=== PATIENT | male | born 1945 | race Caucasian/White ===

== ENCOUNTER 2016-12-23 14:26 | Emergency (ER) | payer SELFPAY ==
[2016-12-23 14:40] VITALS: BP 133/75
--- NOTE | 2016-12-23 15:11 | UC ---
Truncal Trauma HPI - HPI Summary HPI Summary: TWO HOURS [employer], WAS HIT IN ANTERIOR CHEST BY TRACTOR TRAILER GATE THAT WAS SUPPORTING A 3000 POUND ROCK. PAIN RADIATES FROM FRONT OF CHEST AT SITE OF INJURY TO BACK. PAIN IN (RUQ) ABDOMEN. 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 Onset/Duration: Sudden Onset, Lasting Hours Onset Of Pain: Post Accident Severity Initially: Moderate Severity Currently: Moderate Mechanism Of Injury: Blunt Trauma Aggravating Factor(s): Movement, Deep Breathing, Cough Alleviating factor(s): Shallow Breathing Associated Signs And Symptoms: Positive: Chest Pain, Abdominal Pain - Allergies/Home Medications Allergies/Adverse Reactions: Allergies Allergy/AdvReac Type Severity Reaction Status Date / Time Hydrocodone [From Vicodin] Allergy Intermediate Hypotension, Verified 12/23/16 14:43 Sweating Penicillins Allergy Mild Hives Verified 12/23/16 14:43 Morphine Allergy Hypotension, Verified 12/23/16 14:56 Sweating Tree Nuts Allergy Anaphylatic Verified 12/23/16 14:43 Shock Home Medications: Home Medications Naproxen Sodium [Naproxen Sodium 220 mg] 2 tab PO BID PRN 12/23/16 [History Confirmed 12/23/16] PMH/Surg Hx/FS Hx/Imm Hx Previously Healthy: Yes - Surgical History Surgical History: Yes Surgery Procedure, Year, and Place: [facility], , [facility] - Family History Known Family History: Positive: Hypertension - Social History Occupation: Employed Full-time Lives: With Family Alcohol Use: Rare Substance Use Type: None Smoking Status (MU): Never Smoked Tobacco - Immunization History Most Recent Influenza Vaccination: Not UTD Review of Systems Constitutional: Negative Skin: Negative Eyes: Negative ENT: Negative Respiratory: Shortness Of Breath Cardiovascular: Chest Pain Gastrointestinal: Abdominal Pain Genitourinary: Negative Motor: Negative Neurovascular: Negative Musculoskeletal: Negative Neurological: Negative Psychological: Negative Is Patient Immunocompromised?: No All Other Systems Reviewed And Are Negative: Yes Physical Exam Triage Information Reviewed: Yes Appearance: Well-Nourished, Pain Distress Vital Signs: Initial Vital Signs Temp 98.2 F 12/23/16 14:30 Pulse 58 12/23/16 14:30 Resp 20 12/23/16 14:30 BP 133/75 12/23/16 14:30 Pulse Ox 98 12/23/16 14:30 Vital Signs Reviewed: Yes Eye Exam: Normal ENT Exam: Normal ENT: Positive: Normal ENT inspection, TMs normal Dental Exam: Normal Neck exam: Normal Neck: Positive: Supple, Nontender, No Lymphadenopathy Respiratory: Positive: Chest non-tender, Lungs clear, Normal breath sounds, No respiratory distress. Negative: No accessory muscle use, Respiratory distress, Decreased breath sounds Cardiovascular Exam: Normal Cardiovascular: Positive: RRR, No Murmur, Pulses Normal Abdomen Description: Positive: No Organomegaly, Soft. Negative: Nontender - LUQ PAIN, Hepatomegaly, McBurney's Point Tenderness, Peritoneal Signs Bowel Sounds: Positive: Present Musculoskeletal Exam: Normal Musculoskeletal: Positive: Strength Intact, ROM Intact Neurological Exam: Normal Psychological Exam: Normal Psychological: Positive: Normal Response To Family Skin Exam: Normal Truncal Trauma Course/Dx - Differential Dx/Diagnosis Differential Diagnosis/HQI/PQRI: Abdominal Wall Contusion, Chest Wall Contusion , Spleen Trauma, Pulmonary Contusion, Rib Fracture Provider Diagnoses: CHEST TRAUMA; CHEST PAIN; LUQ ABDOMINAL PAIN - Physician Notification/Consults Discussed Patient Care With: Elidia Miller Time Discussed With Above Provider: 14:50 Instructed by Provider To: MD Will See In ED Discharge - Discharge Plan Condition: Stable Disposition: [facility]
== END 2016-12-23 15:16 | disposition short-term general hospital (02) ==
LOC: UCEAST 14:26
DX: S29.9XXA Unspecified injury of thorax, initial encounter (principal); Z88.0 Allergy status to penicillin; W22.8XXA Striking against or struck by other objects, initial encounter; Y92.9 Unspecified place or not applicable; R07.9 Chest pain, unspecified; R10.12 Left upper quadrant pain
CPT/HCPCS: 81003; 93005; 99213; G0463

== ENCOUNTER 2016-12-23 15:36 | Emergency (ER) | payer SELFPAY ==
--- NOTE | 2016-12-23 16:02 | ED ---
Adult Trauma - HPI Summary HPI Summary: 71 male presents to ED from with complaints of epigastric/mid sternal pain after being hit by a tractor trailer tailgate around 12pm today. Patient states he was opening it when a several thousand pound rock was against it forcing it open, swinging and hitting patient in the center of his trunk. Patient did not fall done and no LOC. Did get pushed back from tailgate. Denies any other pain or symptoms other than soreness of mid sternal/epigastric area, especially with sitting and on palpation. Worse with deep breaths. Denies chest pain or trouble breathing. No extremity or head pain/injury. Denies nausea/vomiting. No other complaints. No PMHx. Has not taken any medications. No anticoagulants. - History of Current Complaint Chief Complaint: EDTraumaMultiple Stated Complaint: CHEST INJURY Time Seen by Provider: 12/23/16 15:57 Hx Obtained From: Patient Mechanism of Injury: Direct Blow Ambulatory at the Scene: Yes Loss of Consciousness: no loss of consciousness Impact: Frontal - of body Force: High Onset of Pain: Hours Onset Severity: Mild Current Severity: Mild Pain Intensity: 3 Pain Scale Used: 0-10 Numeric Location: Chest, Abdomen/Pelvis Character: Aching Aggravating Factor(s): Movement, Deep Breaths Alleviating Factor(s): Rest Associated Signs & Symptoms: Positive: Negative - Allergy/Home Medications Allergies/Adverse Reactions: Allergies Allergy/AdvReac Type Severity Reaction Status Date / Time Hydrocodone [From Vicodin] Allergy Intermediate Hypotension, Verified 12/23/16 14:43 Sweating Penicillins Allergy Mild Hives Verified 12/23/16 14:43 Morphine Allergy Hypotension, Verified 12/23/16 14:56 Sweating Tree Nuts Allergy Anaphylatic Verified 12/23/16 14:43 Shock PMH/Surg Hx/FS Hx/Imm Hx Endocrine/Hematology History: Denies: Hx Anticoagulant Therapy, Hx Diabetes Cardiovascular History: Denies: Hx Hypertension Respiratory History: Reports: Hx Asthma GI History: Reports: Other GI Disorders - hernia - Surgical History Surgery Procedure, Year, and Place: U[facility]rhaphy, , [facility] - Immunization History Immunizations Up to Date: Yes Infectious Disease History: No Infectious Disease History: Reports: Hx of Known/Suspected MRSA - under R arm 2011 Denies: History Other Infectious Disease, Traveled Outside the [place] in Last 30 Days - Family History Known Family History: Positive: Hypertension - Social History Alcohol Use: Rare Alcohol Amount: "a beer once in a while" Substance Use Type: Reports: None Smoking Status (MU): Never Smoked Tobacco Review of Systems Constitutional: Negative Positive: Other - chest wall/rib and sternum pain Respiratory: Negative Gastrointestinal: Negative Musculoskeletal: Negative Skin: Negative Neurological: Negative All Other Systems Reviewed And Are Negative: Yes Physical Exam Triage Information Reviewed: Yes Vital Signs On Initial Exam: Initial Vitals Temp Pulse Resp BP Pulse Ox 98.4 F 51 16 130/79 97 12/23/16 15:46 12/23/16 15:46 12/23/16 15:46 12/23/16 15:46 12/23/16 15:46 Vital Signs Reviewed: Yes Appearance: Positive: Well-Appearing, No Pain Distress, Well-Nourished Skin: Positive: Warm, Skin Color Reflects Adequate Perfusion, Dry, Cold, Other - no crepitus, step off or obvious deformity or edema. Negative: Numb, Cyanosis @, Pale, Mass @, Erythema @ Head/Face: Positive: Normal Head/Face Inspection ENT: Positive: Normal ENT inspection, Hearing grossly normal, Pharynx normal, TMs normal. Negative: Nasal congestion, Tonsillar swelling Neck: Positive: Supple, Nontender, No Lymphadenopathy Respiratory/Lung Sounds: Positive: Clear to Auscultation, Breath Sounds Present. Negative: Decreased Breath Sounds, Rales, Rhonchi, Wheezes Cardiovascular: Positive: Normal, RRR, Pulses are Symmetrical in both Upper and Lower Extremities, Other - tender on palpation of lower sternum and rib cage. Negative: Murmur, Rub Abdomen Description: Positive: No Organomegaly, Soft, Hernia @ - mid abdominal hernia noted with sitting- chronic, Other: - tender on palpation in epigastric area, no sign of ecchymosis, edema or signs of trauma appreciated. Negative: CVA Tenderness (R), CVA Tenderness (L), Distended, Guarding, McBurney's Point Tenderness, Peritoneal Signs Bowel Sounds: Positive: Present Musculoskeletal: Positive: Normal, Strength/ROM Intact, Pain @ - palaption of lower rib cage and sternum as noted above Neurological: Positive: Normal, Sensory/Motor Intact, Alert, Oriented to Person Place, Time, CN Intact II-III, Reflexes Intact, NV Bundle Intact Distally, Normal Gait - [place] Coma Scale Best Eye Response: 4 - Spontaneous Best Motor Response: 6 - Obeys Commands Best Verbal Response: 5 - Oriented Coma Scale Total: 15 Diagnostics - Vital Signs Vital Signs Temp Pulse Resp BP Pulse Ox 12/23/16 15:46 98.4 F 51 16 130/79 97 - Laboratory Result Diagrams: 12/23/16 15:10 12/23/16 15:10 Lab Statement: Any lab studies that have been ordered have been reviewed, and results considered in the medical decision making process. - CT chest/abd/pelvis CT Interpretation: No Acute Changes - No pneumothorax is noted. No chest injury is noted. No solid organ injury is noted in the abdomen and pelvis. Incidental note is a retrocaval lymph node measuring 12 mm of uncertain clinical significance. CT Interpretation Completed By: Radiologist Adult Trauma Course/Dx - Course Course Of Treatment: sent over from . normal vitals. labs obtained and unremarkable. EKG negative. no sign of obvious trauma. alert and oriented. CT abd/chest/pelvis obtained and unremarkable. No spinal injury or pain. No neck pain. No concern for cardiorespiratory or other etiologies/injuries at this time. Follow up with PCP. Aware of worsening signs and symptoms and to return if occur. Patient questions answered and understands/agrees. Ibuprofen and rest. Heat/ice. - Diagnoses Differential Diagnosis/HQI/PQRI: Positive: Abrasion(s), Contusion(s), Sprain Provider Diagnoses: Epigastric pain, Contusion of sternum, Rib contusion Discharge - Discharge Plan Condition: Stable Disposition: HOME Patient Education Materials: Contusion in Adults (ED), Rib Contusion (ED) Referrals: Loco Chan MD [Primary Care Provider] - Additional Instructions: Ibuprofen for pain and inflammation. Rest. Heat/ice. Any new or worsening symptoms please return to ED promptly as discussed. Follow up PCP.
[2016-12-23 16:15] LABS: Hematocrit 45 % (42-52); Hemoglobin 15.5 g/dl (14.0-18.0); Mean Corpuscular HGB Conc 35 g/dl (31-36); Mean Corpuscular Hemoglobin 31 pg (27-31); Mean Corpuscular Volume 89 fL (80-94); Mean Platelet Volume 9 um3 (7.4-10.4); Red Blood Count 5.03 10^6/ul (4.0-5.4); Red Cell Distribution Width 14 % (10.5-15); White Blood Count 7.1 10^3/ul (3.5-10.8)
[2016-12-23 16:36] LABS: Albumin 4.2 g/dL (3.2-5.2); Calcium 9.3 mg/dL (8.6-10.3); EGFR Non-African American 79.3 (>60); Globulin 2.8 g/dL (2-4); Potassium 4.1 mmol/L (3.5-5.0); Total Bilirubin 1.6 mg/dL (0.2-1.0)
[2016-12-23] MEDS ORDERED: Iohexol 300* (CONTRAST) 10 ML SDV IV ONE (16:38)
[2016-12-23 17:01] VITALS: BP 119/68
--- NOTE | 2016-12-23 17:24 | RAD ---
Indication: Chest and abdominal injury. Contrast: Administered 148.2 ml of OMNIPAQUE 300 mg/ml CT of the chest, abdomen and pelvis was performed after IV contrast demonstration. Coronal and sagittal reconstructed images were obtained. No prior study is available for comparison. The inferior thyroid lobes are unremarkable. No mediastinal or hilar adenopathy is noted. The heart demonstrates no pericardial effusion. The trachea and major bronchi appear patent. The lung clemente demonstrate bibasilar atelectasis. No pleural fluid is identified. No pneumothorax is noted. The sternum demonstrates no definite evidence of fracture. No rib fracture is noted. The visualized thoracic spine is otherwise unremarkable. CT of the abdomen and pelvis demonstrates liver to be normal in size. No focal lesions or intrahepatic ductal dilatation is noted. The gallbladder demonstrates no calcified gallstones. No pericholecystic fluid or wall thickening is identified. The pancreas demonstrates no mass or pancreatic duct dilatation. The common duct is not dilated. The spleen is normal in size without evidence of focal lesions. No adrenal masses are noted. The kidneys demonstrate symmetric nephrograms without focal lesions. Atherosclerotic aorta is noted. There is a retrocaval lymph node measuring up to 12 mm. No dilated loops of bowel are noted. CT of the pelvis demonstrates no retroperitoneal or pelvic lymphadenopathy. Aorta and inferior vena cava are unremarkable. The colon is filled with stool. The urinary bladder is unremarkable. The prostate is unremarkable. Degenerative changes of both hips are noted. No fracture of the pelvis is noted. The visualized lumbar spine is unremarkable. IMPRESSION: No pneumothorax is noted. Chest injury is noted. No solid organ injury is noted in the abdomen and pelvis. Incidental note is a retrocaval lymph node measuring 12 mm of uncertain clinical significance.
== END 2016-12-23 17:55 | disposition home or self-care (01) ==
LOC: ED 15:36
DX: S20.219A Contusion of unspecified front wall of thorax, initial encounter (principal); W22.8XXA Striking against or struck by other objects, initial encounter; Y93.89 Activity, other specified; Y92.9 Unspecified place or not applicable; R10.13 Epigastric pain; J45.909 Unspecified asthma, uncomplicated; Z88.5 Allergy status to narcotic agent; Z88.0 Allergy status to penicillin
CPT/HCPCS: 36415; 71260; 74177; 80053; 83605; 85025; 85610; 86850; 86900; 86901; 93005; 99282; Q9967

== ENCOUNTER 2017-09-10 07:00 | Emergency (ER) | payer BC, OTHER ==
[2017-09-10 07:19] VITALS: BP 121/66
--- NOTE | 2017-09-10 07:33 | UC ---
Ear Complaint HPI - HPI Summary HPI Summary: The patient is a 72-year-old male that reports that he has had decreased hearing in his left ear for the past 4 days. He states it feels plugged. He has had to have his ear flushed on numerous occasions in the past for short room and impaction. He denies any history of ear surgery. He has had to see ENT in the past. He states that he is hard of hearing. He has chronic nasal congestion and sinus pressure. - History of Current Complaint Chief Complaint: UCEar Stated Complaint: LEFT EAR Time Seen by Provider: 09/10/17 07:22 Hx Obtained From: Patient Onset/Duration: Gradual Onset, Lasting Days Severity Initially: Mild Pain Intensity: 0 Pain Scale Used: 0-10 Numeric Associated Signs/Symptoms: Positive: Hearing Loss Related History: Seasonal Allergies - Allergies/Home Medications Allergies/Adverse Reactions: Allergies Allergy/AdvReac Type Severity Reaction Status Date / Time hydrocodone Allergy See Comment Verified 09/10/17 07:16 morphine Allergy See Comment Verified 09/10/17 07:16 Penicillins Allergy Hives Verified 09/10/17 07:16 Tree Nuts Allergy Anaphylatic Verified 09/10/17 07:16 Shock Home Medications: Home Medications Pain Medication 1 tab PO BID PRN 09/10/17 [History Confirmed 09/10/17] PMH/Surg Hx/FS Hx/Imm Hx Previously Healthy: Yes Other History Of: Negative For: Anticoagulant Therapy - Surgical History Surgical History: Yes Surgery Procedure, Year, and Place: U[facility]ilical [facility]iorrhaphy, , [facility] - Family History Known Family History: Positive: Hypertension - Social History Alcohol Use: Rare Alcohol Amount: "a beer once in a while" Substance Use Type: None Smoking Status (MU): Never Smoked Tobacco - Immunization History Most Recent Influenza Vaccination: Not UTD Review of Systems Constitutional: Negative Skin: Negative Eyes: Negative ENT: Other - hearing loss left ear Respiratory: Negative Cardiovascular: Negative Gastrointestinal: Negative Genitourinary: Negative Motor: Negative Neurovascular: Negative Musculoskeletal: Negative Neurological: Negative Psychological: Negative Is Patient Immunocompromised?: No All Other Systems Reviewed And Are Negative: Yes Physical Exam Triage Information Reviewed: Yes Appearance: Well-Appearing, No Pain Distress, Well-Nourished Vital Signs: Initial Vital Signs Temp 97.6 F 09/10/17 07:13 Pulse 52 09/10/17 07:13 Resp 16 09/10/17 07:13 BP 121/66 09/10/17 07:13 Pulse Ox 99 09/10/17 07:13 Vital Signs Reviewed: Yes Eyes: Positive: Conjunctiva Clear ENT: Positive: Nasal congestion, TMs normal - some scant cerumen in right ear, Uvula midline. Negative: Hearing grossly normal, Nasal drainage, Trismus, Muffled voice, Hoarse voice, Sinus tenderness Neck: Positive: Supple, Nontender, No Lymphadenopathy Respiratory: Positive: Lungs clear, Normal breath sounds, No respiratory distress, No accessory muscle use Cardiovascular: Positive: RRR, No Murmur Musculoskeletal: Positive: ROM Intact, No Edema Neurological: Positive: Alert Psychological Exam: Normal Skin Exam: Normal Ear Complaint Course/Dx - Differential Dx/Diagnosis Provider Diagnoses: hearing loss L ear. possible ZOË Discharge - Sign-Out/Discharge Documenting (check all that apply): Discharge/Admit/Transfer - Discharge Plan Condition: Stable Disposition: HOME Prescriptions: Fluticasone NASAL SPRAY 50MCG* [Flonase NASAL SPRAY 50MCG*] 2 spray BOTH NARES BID #1 btl Patient Education Materials: Hearing Loss (ED), Serous Otitis Media (ED) Referrals: Loco Chna MD [Primary Care Provider] - Additional Instructions: I am unsure of the cause of your hearing loss in the left ear It may be due to serous otitis media I suggest you see your ENT doctor - Billing Disposition and Condition Condition: STABLE Disposition: Home
== END 2017-09-10 07:34 | disposition home or self-care (01) ==
LOC: UCCORT 07:00
DX: H91.92 Unspecified hearing loss, left ear (principal); Z88.0 Allergy status to penicillin; Z88.5 Allergy status to narcotic agent
CPT/HCPCS: 99212; G0463

== ENCOUNTER 2018-06-29 13:36 | Emergency (ER) | payer MEDICARE ==
[2018-06-29 14:01] VITALS: BP 126/75
--- NOTE | 2018-06-29 14:14 | UC ---
Ear Complaint HPI - HPI Summary HPI Summary: Pt presents with c/o bilateral ear "issues" X several months. 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 He has seen his PCP multiple times for this same c/o and is unsatisfied with answer that has been provided as reason for hearing issues. - History of Current Complaint Chief Complaint: UCEar Stated Complaint: BILATERAL EAR COMPLAINT Time Seen by Provider: 06/29/18 13:37 Hx Obtained From: Patient Onset/Duration: Gradual Onset, Lasting Weeks, Still Present Severity Initially: Mild Severity Currently: Mild Pain Intensity: 0 Associated Signs/Symptoms: Positive: Hearing Loss - Allergies/Home Medications Allergies/Adverse Reactions: Allergies Allergy/AdvReac Type Severity Reaction Status Date / Time hydrocodone Allergy See Comment Verified 06/29/18 13:52 morphine Allergy See Comment Verified 06/29/18 13:52 Penicillins Allergy Hives Verified 06/29/18 13:52 Tree Nuts Allergy Anaphylatic Verified 06/29/18 13:52 Shock Home Medications: Home Medications Aspirin [Aspir-Low] 81 mg PO DAILY 06/29/18 [History Confirmed 06/29/18] Clopidogrel TAB* [Plavix TAB*] 75 mg PO DAILY 06/29/18 [History Confirmed ] FLUoxetine CAP* [PROzac CAP*] 40 mg PO DAILY 06/29/18 [History Confirmed ] Oxybutynin TAB* [Ditropan TAB*] 5 mg PO BID 06/29/18 [History Confirmed 06/29/18 ] Rosuvastatin Calcium [Crestor] 20 mg PO DAILY 06/29/18 [History Confirmed ] PMH/Surg Hx/FS Hx/Imm Hx Previously Healthy: Yes Cardiovascular History: Cardiac Disease Other History Of: Negative For: Anticoagulant Therapy - Surgical History Surgical History: Yes Surgery Procedure, Year, and Place: U[facility]rhap[facility], , [facility] - Family History Known Family History: Positive: Hypertension - Social History Occupation: Retired Lives: With Family Alcohol Use: Rare Alcohol Amount: "a beer once in a while" Substance Use Type: None Smoking Status (MU): Never Smoked Tobacco Have You Smoked in the Last Year: No - Immunization History Most Recent Influenza Vaccination: Not UTD Review of Systems All Other Systems Reviewed And Are Negative: Yes Constitutional: Positive: Negative Skin: Positive: Negative Eyes: Positive: Negative ENT: Positive: Other - hearing loss and poppling noise in ears Respiratory: Positive: Negative Cardiovascular: Positive: Negative Gastrointestinal: Positive: Negative Genitourinary: Positive: Negative Motor: Positive: Negative Neurovascular: Positive: Negative Musculoskeletal: Positive: Negative Neurological: Positive: Negative, Headache Is Patient Immunocompromised?: No Physical Exam Triage Information Reviewed: Yes Appearance: Well-Appearing Vital Signs: Initial Vital Signs Temp 98.4 F 06/29/18 13:55 Pulse 56 06/29/18 13:55 Resp 18 06/29/18 13:55 BP 126/75 06/29/18 13:55 Pulse Ox 98 06/29/18 13:55 Vital Signs Reviewed: Yes Eye Exam: Normal ENT Exam: Normal ENT: Positive: Normal ENT inspection, Hearing grossly normal Dental Exam: Normal Neck exam: Normal Respiratory: Positive: No respiratory distress Musculoskeletal Exam: Normal Neurological Exam: Normal Psychological Exam: Normal Skin Exam: Normal Ear Complaint Course/Dx - Differential Dx/Diagnosis Differential Diagnosis/HQI/PQRI: Other - hearing loss Provider Diagnosis: Hearing loss Discharge - Sign-Out/Discharge Documenting (check all that apply): Patient Departure All imaging exams completed and their final reports reviewed: No Studies - Discharge Plan Condition: Stable Disposition: HOME Patient Education Materials: Hearing Loss (ED) Referrals: [facility] [place] [facility] [Outside] Fran Jenkins MD [Primary Care Provider] - As Soon As Possible Additional Instructions: [facility] [address] [place] [address], [phone] Hours of Operation Monday: 8:00 A.M. 4:30 P.M. - Billing Disposition and Condition Condition: STABLE Disposition: Home
== END 2018-06-29 14:40 | disposition home or self-care (01) ==
LOC: UCCORT 13:36
DX: H91.93 Unspecified hearing loss, bilateral (principal); Z88.8 Allergy status to other drugs, medicaments and biological substances; Z88.5 Allergy status to narcotic agent; Z88.0 Allergy status to penicillin; Z91.018 Allergy to other foods; Z79.82 Long term (current) use of aspirin
CPT/HCPCS: 99211; G0463

== ENCOUNTER 2019-03-08 10:50 | Emergency (ER) | payer MEDICARE ==
--- OUTSIDE RECORDS SUMMARY | 2019-03-08 11:11 | XMS REPORT | Summary of Care ---
:1945 Author Organization [facility] Address [address] [place] [address] Care Team Providers Name Role Phone Fran Jenkins MD Primary Care Provider Reason for Visit Reason Comments Hypertension Encounter Details Date Type Department Care Team Description 02/05/2019 Office Visit [place] Josiane Eddy, Cerebrovascular accident (CVA) due to stenosis of right middle cerebral artery (Primary Dx); Cardiology at Essential hypertension [place] [address] [place] [address] [facility] [address] [place] [address] 5th Floor, [phone] [place] [phone] Allergies Active Allergy Reactions Severity Noted Date Comments Morphine And Related Nausea And Vomiting 05/11/2018 Penicillins 02/04/2018 documented as of this encounter (statuses as of 02/05/2019) Medications Medication Sig Dispensed Refills Start Date End Date Status clopidogrel (PLAVIX) Take 1 tablet by 30 tablet 1 02/14/2018 02/13/2019 Active 75 MG tablet mouth daily Additional information Patient not taking. Reported on 02/05/2019 1:05 PM fluoxetine (PROZAC) 20 Take 1 capsule by 30 capsule 1 02/14/20182018 Active MG capsule mouth daily Additional information Patient taking differently: 40 mg Oral Daily Standard, Reported on 2018 1:16 PM rosuvastatin (CRESTOR) 20 Take 1 tablet by 30 tablet 1 02/14/20182018 Active MG tablet mouth daily acetaminophen (TYLENOL) Take 1,000 mg by 0 Active 500 MG tablet mouth every 6 (six) hours as needed for Pain oxybutynin (DITROPAN) 5 Take 5 mg by mouth 0 Active MG tablet Two Times Daily buPROPion (WELLBUTRIN SR) Take 150 mg by 0 Active 150 MG 12 hr tablet mouth Two Times Daily aspirin 81 MG tablet Take 81 mg by 0 Active mouth daily lisinopril Take 1 tablet by 30 tablet 11 01/01/2019 12/31/2019 Active (PRINIVIL,ZESTRIL) 5 MG mouth daily tabletIndications: Essential hypertension documented as of this encounter (statuses as of 02/05/2019) Active Problems Problem Noted Date Essential hypertension 01/02/2019 Last Assessment & Plan: Blood pressure is better-controlled. He will follow up with his PCP in this regard from now on. 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 There is no evidence of any cardiac condition that can potentially preclude him from driving. 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 I will defer to the neurologist to comment in this regard about his neurological status pertaining to his ability to drive. Benign positional vertigo 05/11/2018 Dyslipidemia 05/11/2018 Overview: Overview: LDL 167 in Nov 2009, failed Lipitor in prior year Last Assessment & Plan: On high dose rosuvastatin. Obesity 05/11/2018 Seasonal allergies 05/11/2018 Overview: Overview: environmental Impaired mobility and ADLs 02/07/2018 Cerebrovascular accident (CVA) due to stenosis of right middle cerebral 2017 artery Last Assessment & Plan: CHIO did not show any evidence of interatrial shunt/PFO. No further evaluation from the point of view of PFO closure is required. Acute right MCA stroke 02/04/2018 Last Assessment & Plan: He was supposed to get his CHIO done to assess for presence of PFO. He has a positive TCD study. His ROPE score is 3-4 ( hypertension present or not) with low likelihood of stroke being due to PFO. Given his age also, he would not be a frontline candidate for PFO closure. To further elucidate the matter a CHIO is required. Chronic pain of right hip 08/25/2017 Primary osteoarthritis of right hip 08/22/2017 documented as of this encounter (statuses as of 02/05/2019) Immunizations Name Administration Dates Next Due Influenza Quad IM Pres Free (0.5 mL dose) 02/07/2018 () documented as of this encounter Social History Tobacco Use Types Packs/Day Years Used Date Never Smoker 0 Smokeless Tobacco: Never Used Alcohol Use Drinks/Week oz/Week Comments No 2 Cans of beer 2.0 Alcohol Habits Answer Date Recorded How often do you have a drink containing alcohol? Never 05/11/2018 How many drinks containing alcohol do you have on a typical Not asked day when you are drinking? How often do you have six or more drinks on one occasion? Not asked Sex Assigned at Date Recorded Not on file Job Start Date Occupation Industry Not on file Not on file Not on file Travel History Travel Start Travel End No recent travel history available. documented as of this encounter Last Filed Vital Signs Vital Sign Reading Time Taken Comments Blood Pressure 141/80 02/05/2019 1:01 PM EST Pulse 64 02/05/2019 1:01 PM EST Temperature - - Respiratory Rate - - Oxygen Saturation 95% 02/05/2019 1:01 PM EST Inhaled Oxygen Concentration - - Weight 103.1 kg (227 lb 3.2 oz) 02/05/2019 1:01 PM EST Height - - Body Mass Index 36.08 05/11/2018 10:57 AM EST documented in this encounter Progress Notes Josiane Eddy MD - 02/05/2019 1:30 PM EST Dear Fran Jenkins MD I had the pleasure of seeing our mutual patient Migel Torre in the clinic today. Please find attached the clinic visit note for your perusal. Migel Torre [id number] 73 y.o. male Reason for visit: HPI Migel Torre is a pleasant 73 y.o. male who presented to our clinic for evaluation of PFO closure. He suffered a right MCA stroke in 02/2018. He had a CHIO on 01/21/2019. He is here for a follow up. Patient denies any chest pain with exertion. No dyspnea on exertion. No orthopnea or PND. He denied palpitations, dizziness or syncope. No ankle edema. No symptoms suggestive of claudication. He has some residual facial droop since his stroke. No weakness in arms or legs. Cherie Carreon RN 02/05/2019 1:06 PM Sign at exiting of workspace Denies Chest pain, SOB, palpitations, and swelling in ankles/feet. Review of Systems Constitutional: Positive for malaise/fatigue. HENT: Positive for hearing loss. Eyes: Negative. Respiratory: Negative for shortness of breath. Cardiovascular: Negative for chest pain and palpitations. Gastrointestinal: Negative. Genitourinary: Negative. Musculoskeletal: Negative. Neurological: Positive for sensory change and focal weakness. 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 Social Needs Financial resource strain: Not on file Food insecurity: Worry: Not on file Inability: Not on file Transportation needs: Medical: Not on file Non-medical: Not on file Tobacco Use Smoking status: Never Smoker Smokeless tobacco: Never Used Substance and Sexual Activity Alcohol use: No Alcohol/week: 2.0 standard drinks Types: 2 Cans of beer per week Frequency: Never Drug use: No Sexual activity: Never Lifestyle Physical activity: Days per week: Not on file Minutes per session: Not on file Stress: Not on file Relationships Social connections: Talks on phone: Not on file Gets together: Not on file Attends gnosticism service: Not on file Active member of club or organization: Not on file Attends meetings of clubs or organizations: Not on file Relationship status: Not on file Intimate partner violence: Fear of current or ex partner: Not on file Emotionally abused: Not on file Physically abused: Not on file Forced sexual activity: Not on file Other Topics Concern Not on file Social History Narrative Not on file Current Outpatient Medications on File Prior to Visit Medication Sig Dispense Refill acetaminophen (TYLENOL) 500 MG tablet Take 1,000 mg by mouth every 6 (six ) hours as needed for Pain aspirin 81 MG tablet Take 81 mg by mouth daily buPROPion (WELLBUTRIN SR) 150 MG 12 hr tablet Take 150 mg by mouth Two Times Daily fluoxetine (PROZAC) 20 MG capsule Take 1 capsule by mouth daily (Patient taking differently: Take 40 mg by mouth daily ) 30 capsule 1 lisinopril (PRINIVIL,ZESTRIL) 5 MG tablet Take 1 tablet by mouth daily 30 tablet 11 oxybutynin (DITROPAN) 5 MG tablet Take 5 mg by mouth Two Times Daily rosuvastatin (CRESTOR) 20 MG tablet Take 1 tablet by mouth daily 30 tablet 1 clopidogrel (PLAVIX) 75 MG tablet Take 1 tablet by mouth daily (Patient not taking: Reported on 02/05/2019) 30 tablet 1 No current facility-administered medications on file prior to visit. Allergies Allergen Reactions Morphine And Related Nausea And Vomiting Penicillins Physical Examination: Vitals: 02/05/19 1301 BP: 141/80 Pulse: 64 SpO2: 95% Physical Exam Constitutional: He is oriented to person, place, and time. He appears well- developed and well-nourished. HENT: Head: Normocephalic and atraumatic. Eyes: Conjunctivae and EOM are normal. No scleral icterus. Neck: Neck supple. No JVD present. Cardiovascular: Normal rate, regular rhythm and normal heart sounds. Pulmonary/Chest: Effort normal and breath sounds normal. No respiratory distress. He has no wheezes.He has no rales. Abdominal: Soft. Bowel sounds are normal. He exhibits no distension. There is no tenderness. There is no rebound. Musculoskeletal: General: No edema. Neurological: He is alert and oriented to person, place, and time. Minimal residual weakness on the left. Psychiatric: He has a normal mood and affect. I have personally reviewed and interpreted the ECG for Migel Chavezs obtained in the clinic today that showed I have personally reviewed and interpreted the transesophageal echocardiogram for Migel Torre performed on 01/21/2019. Interpretation Summary HEIGHT: 0.0 cm (0 ft 0.0 in) WEIGHT: 0.0 kg (0.0 lbs) BP: BSA: FINDINGS ------- TYPE OF REPORT:This is a complete two-dimensional transesophageal echocardiogram (2D, M-mode, Doppler and color flow Doppler). ECG rhythm:Sinus rhythm. Procedure:A CHIO was performed in the location listed above. I certify I was present in compliance with [facility] regulations. The patient was monitored by a nurse in attendance throughout the procedure. The patient was sedated for the CHIO. Local anesthesia was provided by benzocaine topical spray. There were no CHIO related complications. Study quality:This was a technically adequate study. Left Ventricle:The left ventricle size is normal. Overall left ventricular systolic function is normal with, an EF between 60 - 65 %. Right Ventricle:The right ventricle is normal in size measuring < 33 mm. The right ventricular systolic function is normal. There is no LA Appendage Thrombus. INTERATRIAL SEPTUM:The interatrial septum is normal. There is no interatrial shunt visualized by color Doppler and 'bubble' study. Aortic Valve:The aortic valve is trileaflet and appears structurally normal. There is no evidence of aortic regurgitation. There is no evidence of aortic stenosis. Mitral Valve:The mitral valve is normal. Mild mitral regurgitation is present. Tricuspid Valve:The tricuspid valve appears grossly normal. Trace tricuspid regurgitation present. Pulmonic Valve:The pulmonic valve is normal. Trace/mild (physiologic) pulmonic regurgitation. Aorta:The ascending aorta is dilated measuring up to 3.61cm. Non complex (< 4mm), atherosclerotic plaque(s) located in the ascending aorta. Non complex (< 4mm), atherosclerotic plaque(s) located in the transverse aorta. Pulmonary Veins:The pulmonary veins appear normal in size. The flow patterns, measured by Doppler, appear normal , in the left upper vein. Pericardium:There is no pericardial effusion. CONCLUSIONS 1. This is a complete two-dimensional transesophageal echocardiogam (2D, M-mode, Doppler and color flow Doppler). 2. This was a technically adequate study. 3. Overall left ventricular systolic function is normal with, an EF between 60 - 65 %. 4. The right ventricular systolic function is normal. 5. There is no LA Appendage Thrombus. 6. There is no interatrial shunt visualized by color Doppler and 'bubble' study. 7. The ascending aorta is dilated measuring up to 3.61cm. 8. Non complex (< 4mm), atherosclerotic plaque(s) located in the transverse aorta. Conclusions completed MEASUREMENTS Ao Diam: 3.64 cm Ao asc: 3.61 cm Electronically Signed By: Josiane Eddy MD Result Images Assessment and Plan: Our plan for Migel Torre will be as follows: Cerebrovascular accident (CVA) due to stenosis of right middle cerebral artery CHIO did not show any evidence of interatrial shunt/PFO. No further evaluation from the point of viewof PFO closure is required. Essential hypertension Blood pressure is better-controlled. He will follow up with his PCP in this regard from now on. 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 There is no evidence of any cardiac condition that can potentially preclude him from driving. 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 I will defer to the neurologist to comment in this regard about his neurological status pertaining to his ability to drive. I will see Migel Torre back as needed. Thank you for allowing me to partake in Migel Torre's care. documented in this encounter Plan of Treatment Name Type Priority Associated Diagnoses Order Schedule EKG 12 lead EKG1 ECG Routine Cerebrovascular accident (CVA) due Ordered: to stenosis of right middle cerebral artery Health Maintenance Due Date Last Done Comments MMR Vaccines (1 of 1 - Standard 07/13/1946 series) DTaP,Tdap,and Td Vaccines (1 - 1953 Tdap) Colon Cancer Screening 10 yrs 1996 Zoster Vaccines (1 of 2) 1996 Pneumococcal Vaccine: 65+ Years (1 07/13/2011 of 2 - PCV13) Influenza Vaccine 12/04/2018 Hepatitis C Screening (B. Completed 02/04/2018 [id number]) HIB Vaccines Aged Out No longer eligible based on patient's age to complete this topic Hepatitis A Vaccines Aged Out No longer eligible based on patient's age to complete this topic Hepatitis B Vaccines Aged Out No longer eligible based on patient's age to complete this topic IPV Vaccines Aged Out No longer eligible based on patient's age to complete this topic Pneumococcal Vaccine: Pediatrics Aged Out No longer eligible based on (0 to 5 Years) and At-Risk patient's age to complete Patients (6 to 64 Years) this topic Varicella Vaccines Aged Out No longer eligible based on patient's age to complete this topic documented as of this encounter Results Not on filedocumented in this encounter Visit Diagnoses Diagnosis Cerebrovascular accident (CVA) due to stenosis of right middle cerebral artery - Primary Essential hypertension Unspecified essential hypertension documented in this encounter
--- OUTSIDE RECORDS SUMMARY | 2019-03-08 11:11 | XMS REPORT | Summary of Care ---
:1945 Author Organization [facility] Address [address] [place] [address] Care Team Providers Name Role Phone Fran Jenkins MD Primary Care Provider Reason for Referral Diagnostic Medical (Routine) Status Reason Specialty Diagnoses / Referred By Contact Referred To Contact Procedures Authorized Cardiology Diagnoses Acute right MCA stroke Josiane Eddy, Cardiology Procedures CHIO with bubble study Provider-Based [address] 5th Floor, [place] [address] [address] [place] [address] Email: [email or web address] Encounter Details Date Type Department Care Team Description 01/21/2019 [facility] and Josiane Eddy, Acute right MCA Encounter Vascular Center at [address] [facility] [address] [facility] Room [address] [place] [id number] [place] [address] [phone] Allergies Active Allergy Reactions Severity Noted Date Comments Morphine And Related Nausea And Vomiting 05/11/2018 Penicillins 02/04/2018 documented as of this encounter (statuses as of 01/25/2019) Medications Medication Sig Dispensed Refills Start Date End Date Status clopidogrel (PLAVIX) Take 1 tablet by 30 tablet 1 02/14/2018 02/13/2019 Active 75 MG tablet mouth daily fluoxetine (PROZAC) Take 1 capsule 30 capsule 1 02/14/2018 02/13/2019 Active 20 MG capsule by mouth daily Additional information Patient taking differently: [...] as of this encounter (statuses as of 01/25/2019) Active Problems Problem Noted Date Essential hypertension 01/02/2019 Last Assessment & Plan: Blood pressure is elevated. Given his stroke, his BP goals are stringent. I shall start him on lisinopril 5 mg daily. I shall check a BMP as well. Benign positional vertigo 05/11/2018 Dyslipidemia 05/11/2018 Overview: Overview: LDL 167 in Nov 2009, failed Lipitor in prior year Last Assessment & Plan: On high dose rosuvastatin. Obesity 05/11/2018 Seasonal allergies 05/11/2018 Overview: Overview: environmental Impaired mobility and ADLs 02/07/2018 Cerebrovascular accident (CVA) due to stenosis of right middle cerebral 2017 artery Acute right MCA stroke 02/04/2018 Last Assessment [...] as of this encounter (statuses as of 01/25/2019) Immunizations Name Administration Dates Next Due Influenza Quad IM Pres Free (0.5 mL dose) 02/07/2018 () documented as of this encounter Social History Tobacco Use Types Packs/Day Years Used Date Never Smoker Smokeless Tobacco: Never Used Alcohol Use Drinks/Week [...] Sign Reading Time Taken Comments Blood Pressure 121/75 01/21/2019 10:49 AM EST Pulse 63 01/21/2019 10:49 AM EST Temperature 36.9 01/21/2019 9:11 AM EST C (98.5 F) Respiratory Rate 16 01/21/2019 10:46 AM EST Oxygen Saturation 94% 01/21/2019 10:49 AM EST Inhaled Oxygen Concentration - - Weight - - Height - - Body Mass Index - - documented in this encounter [facility] - 01/21/2019 Do not eat for 2 hours after your procedure. Please avoid bhab-zx-[id number] foods ( ie. Steak) for the remainder of today. Do NOT drive or operate heavy machinery for 24 hours. Rest for the rest of the day today. Check IV site for bleeding or signs of infection including but not limited to swelling, redness, tenderness. documented in this encounter Plan of Treatment Date Type Specialty Care Team Description 02/12/2019 Office Visit Cardiology Josiane Eddy MD [address] [place] [address] [place] [address] [phone] Name Type Priority Associated Diagnoses Date/Time CHIO with bubble Cardiac Services Routine Acute right MCA 01/21/2019 8:44 AM study stroke EST Health Maintenance Due Date Last Done Comments MMR Vaccines (1 of 1 - Standard 07/13/1946 series) DTaP,Tdap,and Td Vaccines (1 - 1953 Tdap) Colon Cancer Screening 10 yrs 1996 Zoster Vaccines (1 of 2) 1996 Pneumococcal Vaccine: 65+ Years (1 07/13/2011 of 2 - PCV13) Influenza Vaccine 12/04/2018 Hepatitis C Screening (B. Completed 02/04/2018 [id number]) HIB Vaccines Aged Out No longer eligible [...] this topic documented as of this encounter Procedures Procedure Name Priority Date/Time Associated Diagnosis Comments ECHOCARDIOGRAM CHIO WITH Routine 01/21/2019 8:44 AM Acute right MCA BUBBLE STUDY EST stroke documented in this encounter Results Not on filedocumented in this encounter Visit Diagnoses Diagnosis Acute right MCA stroke Unspecified cerebral artery occlusion with cerebral infarction documented in this encounter Administered Medications Medication Order MAR Action Action Date Dose Rate Site fentaNYL (SUBLIMAZE) (PF) Given 01/21/2019 9:51 AM EST 50 mcg injection Code/Trauma Medication, Starting 01/21/19 at 0951 midazolam (VERSED) injection Given 01/21/2019 9:54 AM EST 1 mg Code/Trauma Medication, Starting 01/21/19 at 0951 Given 01/21/2019 9:51 AM EST 2 mg documented in this encounter
[2019-03-08 11:35] VITALS: BP 129/74
--- NOTE | 2019-03-08 12:48 | UC ---
Respiratory Complaint HPI - HPI Summary HPI Summary: 73-year-old male presenting with sinus congestion, sinus pressure, postnasal drip, nonproductive cough, and wheezing 3 weeks. Notes wheezing, worse at night. Denies shortness of breath and chest pain. Denies fever and chills. Denies nausea and vomiting. Denies taking anything for symptom relief. Notes history of asthma. Nonsmoker. - History of Current Complaint Chief Complaint: UCGeneralIllness Stated Complaint: CONGESTION COUGH Hx Obtained From: Patient Onset/Duration: Gradual Onset, Lasting Weeks Pain Intensity: 0 - Allergies/Home Medications Allergies/Adverse Reactions: Allergies Allergy/AdvReac Type Severity Reaction Status Date / Time hydrocodone Allergy See Comment Verified 03/08/19 11:27 morphine Allergy See Comment Verified 03/08/19 11:27 Penicillins Allergy Hives Verified 03/08/19 11:27 Tree Nuts Allergy Anaphylatic Verified 03/08/19 11:27 Shock Home Medications: Home Medications BuPROPion XL* [Bupropion XL*] 300 mg PO DAILY 03/08/19 [History Confirmed ] Lisinopril TAB* [Prinivil TAB*] 5 mg PO DAILY 03/08/19 [History Confirmed ] PMH/Surg Hx/FS Hx/Imm Hx Endocrine History: Dyslipidemia Cardiovascular History: Hypertension Respiratory History: Asthma Other History Of: Negative For: Anticoagulant Therapy - Surgical History Surgical History: Yes Surgery Procedure, Year, and Place: [facility]aphy, [facility] - Family History Known Family History: Positive: Hypertension - Social History Alcohol Use: Rare Alcohol Amount: "a beer once in a while" Substance Use Type: None Smoking Status (MU): Never Smoked Tobacco Have You Smoked in the Last Year: No - Immunization History Most Recent Influenza Vaccination: Not UTD Review of Systems All Other Systems Reviewed And Are Negative: Yes Constitutional: Positive: Negative. Negative: Fever, Chills ENT: Positive: Nasal Discharge - PND, Sinus Congestion, Sinus Pain/Tenderness. Negative: Sore Throat, Ear Ache Respiratory: Positive: Cough - non productive, Other - wheezing. Negative: Shortness Of Breath Cardiovascular: Positive: Negative. Negative: Palpitations, Chest Pain Gastrointestinal: Positive: Negative. Negative: Vomiting, Nausea Musculoskeletal: Negative: Myalgia Neurological: Negative: Headache Physical Exam Triage Information Reviewed: Yes Appearance: Well-Appearing, No Pain Distress, Well-Nourished Vital Signs: Initial Vital Signs Temp 98.5 F 03/08/19 11:30 Pulse 58 03/08/19 11:30 Resp 14 03/08/19 11:30 BP 129/74 03/08/19 11:30 Pulse Ox 97 03/08/19 11:30 Vital Signs Reviewed: Yes Eyes: Positive: Conjunctiva Clear ENT: Positive: Hearing grossly normal - [place] in L ear, states nl for him., Nasal drainage - PND, TMs normal - cerumen impaction of L ear. Removal revealed TMs normal b/l., Sinus tenderness, Uvula midline. Negative: Tonsillar swelling, Tonsillar exudate Neck exam: Normal Neck: Positive: Supple, Nontender, No Lymphadenopathy Respiratory: Positive: No respiratory distress, No accessory muscle use, Wheezing - faint diffuse expiratory wheezing. Negative: Crackles, Rhonchi, Stridor Cardiovascular Exam: Normal Cardiovascular: Positive: RRR Neurological: Positive: Alert Psychological: Positive: Age Appropriate Behavior Respiratory Course/Dx - Course Course Of Treatment: I treated patient with Augmentin, albuterol inhaler, Tessalon Perles, and 5 day course of prednisone for sinusitis and acute bronchitis. Patient states he is taking prednisone in the past without issue. Instructed patient to follow up with PCP if symptoms persist or worsen. Patient voiced understanding and agreed with treatment plan. - Differential Dx/Diagnosis Differential Diagnosis/HQI/PQRI: Asthma, Bronchitis, Sinusitis Provider Diagnosis: Impacted cerumen of left ear, Sinusitis, Acute bronchitis with bronchospasm Discharge ED - Sign-Out/Discharge Documenting (check all that apply): Patient Departure All imaging exams completed and their final reports reviewed: No Studies - Discharge Plan Condition: Stable Disposition: HOME Prescriptions: Albuterol HFA INHALER* [Ventolin HFA Inhaler*] 1 - 2 puff INH Q6H PRN #1 mdi PRN Reason: Sob/Wheezing Azithromyxin ELISA (NF) [Z-Elisa (Zithromax) 250 mg tabs #6] 2 tab PO .TODAY, THEN 1 DAILY #6 tab Benzonatate CAP* [Tessalon 100 MG CAP*] 100 mg PO TID PRN #15 cap PRN Reason: Cough predniSONE 10 mg TAB [Deltasone 10 MG TAB*] 30 mg PO DAILY #15 tab Patient Education Materials: Prednisone (By mouth), Acute Bronchitis (ED), Rhinosinusitis (ED) Referrals: Fran Jenkins MD [Primary Care Provider] - If Needed Additional Instructions: As discussed, take Azithromycin for treatment of your sinus infection. You may use nasal saline spray or Flonase for symptomatic relief. Take the prednisone as prescribed and use the inhaler as needed for shortness of breath/wheezing. Get plenty of rest and increase your fluid intake. Follow up with your primary care provider if symptoms do not resolve within 5-7 days. Go to the emergency room with any new or worsening symptoms. - Billing Disposition and Condition Condition: STABLE Disposition: Home
== END 2019-03-08 13:34 | disposition home or self-care (01) ==
LOC: UCCORT 10:50
DX: J32.9 Chronic sinusitis, unspecified (principal); J45.909 Unspecified asthma, uncomplicated; H61.22 Impacted cerumen, left ear; Z79.899 Other long term (current) drug therapy; Z88.5 Allergy status to narcotic agent; Z88.0 Allergy status to penicillin; Z91.018 Allergy to other foods
CPT/HCPCS: 99213; G0463

== ENCOUNTER 2019-03-10 10:22 | Emergency (ER) | payer MEDICARE ==
[2019-03-10 10:33] VITALS: BP 151/79
[2019-03-10] MEDS ORDERED: Lidocaine 2% w EPI 1:100,000* 20 ML MDV VIAL INJ ONE (10:34)
[2019-03-10] MEDS ORDERED: Tetan/Diph/Pertus SYR(Tdap)* 0.5 ML SYR(BOOSTRIX) use SYR contains LATEX IM ONE (10:37)
--- NOTE | 2019-03-10 11:17 | UC ---
Laceration HPI - HPI Summary HPI Summary: Cutting up bread for birds with a filet knife and cut his left index finger. - History Of Current Complaint Chief Complaint: UCSkin Stated Complaint: LEFT INDEX FINGER LACERATION Hx Obtained From: Patient Laceration Location: Finger - left index Mechanism Of Injury: Sharp Trauma Onset/Duration: Sudden Onset Severity: Moderate Pain Intensity: 0 Aggravating Factors: Movement Hands: 1 - 3.5 cm laceration - Allergies/Home Medications Allergies/Adverse Reactions: Allergies Allergy/AdvReac Type Severity Reaction Status Date / Time hydrocodone Allergy See Comment Verified 03/10/19 10:30 morphine Allergy See Comment Verified 03/10/19 10:30 Penicillins Allergy Hives Verified 03/10/19 10:30 Tree Nuts Allergy Anaphylatic Verified 03/10/19 10:30 Shock PMH/Surg Hx/FS Hx/Imm Hx Cardiovascular History: Hypertension Respiratory History: Asthma Neurological History: CVA Psychological History: Depression Other History Of: Negative For: Anticoagulant Therapy - Surgical History Surgical History: Yes Surgery Procedure, Year, and Place: [facility]rhaphy, , [facility] - Family History Known Family History: Positive: Hypertension - Social History Occupation: Retired Lives: With Family Alcohol Use: Rare Alcohol Amount: "a beer once in a while" Substance Use Type: None Smoking Status (MU): Never Smoked Tobacco Have You Smoked in the Last Year: No - Immunization History Most Recent Influenza Vaccination: Not UTD Review of Systems All Other Systems Reviewed And Are Negative: Yes Skin: Positive: Other - laceration ENT: Positive: Nasal Discharge Respiratory: Positive: Shortness Of Breath - on prednisone for asthma exacerbation., Cough Physical Exam Triage Information Reviewed: Yes Appearance: Well-Appearing, No Pain Distress Vital Signs: Initial Vital Signs Temp 99 F 03/10/19 10:30 Pulse 58 03/10/19 10:30 Resp 14 03/10/19 10:30 BP 151/79 03/10/19 10:30 Pulse Ox 96 03/10/19 10:30 Vital Signs Reviewed: Yes Eyes: Positive: Conjunctiva Clear ENT: Positive: Pharynx normal, Nasal congestion, TMs normal Neck exam: Normal Respiratory Exam: Normal Cardiovascular Exam: Normal Musculoskeletal Exam: Normal Neurological Exam: Normal Psychological Exam: Normal Skin: Positive: Other - laceration left index finger Laceration Repair - Laceration Repair 1 Description: Linear Laceration Size After Repair: Length (cm) - 3.5 Modified For Repair: No Type Injection: Local Anesthesia Used: 2.0% Lido Additive Used (in ml): Epi Cleansing Completed Via Routine Prep: Yes Irrigation With Pressure Irrigation Device: Yes Closure Material: Sutures Closure Method: Single Layer Suture Of: Skin - #13 running sutures placed Suture Type: Nylon - 4-0 Laceration Course/Dx - Differential Dx - Laceration/Wound Differental Diagnoses: Abrasion, Avulsion, Laceration - Diagnosis Provider Diagnosis: Laceration of left index finger Discharge ED - Sign-Out/Discharge Documenting (check all that apply): Patient Departure All imaging exams completed and their final reports reviewed: No Studies - Discharge Plan Condition: Stable Disposition: HOME Patient Education Materials: Care For Your Stitches (ED), Finger Laceration (ED ) Referrals: Fran Jenkins MD [Primary Care Provider] - (10 days for suture removal, here or at your physicians.) Additional Instructions: Keep dressing on until tomorrow morning, then use antibiotic ointment with a dressing, and change twice a day. Avoid using the finger for heavy lifting. you could rip the stitches out. - Billing Disposition and Condition Condition: STABLE Disposition: Home
== END 2019-03-10 11:30 | disposition home or self-care (01) ==
LOC: UCCORT 10:22
DX: S61.211A Laceration without foreign body of left index finger without damage to nail, initial encounter (principal); I10 Essential (primary) hypertension; J45.909 Unspecified asthma, uncomplicated; Z23 Encounter for immunization; W26.0XXA Contact with knife, initial encounter; Y92.9 Unspecified place or not applicable; Z88.5 Allergy status to narcotic agent; Z88.0 Allergy status to penicillin; Z91.018 Allergy to other foods; Z86.73 Personal history of transient ischemic attack (TIA), and cerebral infarction without residual deficits; Z79.52 Long term (current) use of systemic steroids
CPT/HCPCS: 12002; 90471; 90715; 99211; G0463

== ENCOUNTER 2019-04-02 19:57 | Emergency (ER) | payer MEDICARE ==
--- OUTSIDE RECORDS SUMMARY | 2019-04-02 20:33 | XMS REPORT | Summary of Care ---
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 buPROPion XL Take 1 Tab by 30 Tab 1 09/27/2018 Active (WELLBUTRIN XL) 150 MG mouth DAILY. Oral TABLET SR 24 HR 24 hour tablet Rosuvastatin Calcium Take 1 Tab by 30 Tab 5 09/27/2018 09/26/2019 Active (CRESTOR) 20 MG Oral mouth DAILY for Tab 364 days. fluoxetine (PROZAC) 20 Take 1 Cap by 30 Cap 1 11/16/2018 Active MG Oral Cap mouth DAILY. oxybutynin (DITROPAN) TAKE ONE TABLET 60 Tab 1 12/24/2018 Active 5 MG Oral Tab BY MOUTH TWICE A DAY buPROPion (WELLBUTRIN TAKE ONE TABLET 30 Tab 1 01/14/2019 Active XL) 300 MG Oral TABLET BY MOUTH EVERY SR 24 HR DAY Fluoxetine HCl 40 MG TAKE ONE CAPSULE 30 Cap 5 03/11/2019 Active Oral Cap BY MOUTH EVERY DAY amantadine (SYMMETREL) Take 1 Cap by 60 Cap 1 03/11/2019 Active 100 MG Oral Cap mouth TWICE DAILY. documented as of this encounter (statuses as of 03/22/2019) Active Problems Problem Noted Date Acute right MCA stroke 02/25/2018 Chronic pain of right hip 08/25/2017 Primary osteoarthritis of right hip 08/22/2017 Dyslipidemia Overview: LDL 167 in Nov 2009, failed Lipitor in prior year Seasonal allergies Overview: environmental Benign positional vertigo Obesity documented as of this encounter (statuses as of 03/22/2019) Resolved Problems Problem Noted Date Resolved Date Intermediate coronary syndrome 05/16/2015 Overview: non-cardiac chest pain by negative biomarkers and cath, equivocal nuclear stress GERD (gastroesophageal reflux disease) 03/03/2016 TIA 03/03/2016 Overview: hx of TIA, Dr. Abbott documented as of this encounter (statuses as of 03/22/2019) Social History Tobacco Use Types Packs/Day Years Used Date Never Smoker Smokeless Tobacco: Never Used Alcohol Use Drinks/Week oz/Week Comments No Sex Assigned at Date Recorded Not on file Job Start Date Occupation Industry Not on file Not on file Not on file Travel History Travel Start Travel End No recent travel history available. documented as of this encounter Last Filed Vital Signs Vital Sign Reading Time Taken Comments Blood Pressure 130/70 03/22/2019 9:32 AM EST Pulse 54 03/22/2019 9:32 AM EST Temperature - - Respiratory Rate - - Oxygen Saturation 98% 03/22/2019 9:32 AM EST Inhaled Oxygen Concentration - - Weight - - Height 172.7 cm (5' 8") 03/22/2019 9:32 AM EST Body Mass Index - - documented in this encounter Patient Instructions Patient InstructionsBritt Tan FNP - 03/22/2019 9:20 AM ESTKeep area clean and dry Follow up as needed documented in this encounter Progress Notes Britt Tan FNP - 03/22/2019 9:20 AM EST PATIENT: Migel Torre : 1945 DATE OF SERVICE: 03/22/2019 SUBJECTIVE: 73-y.o. male here for removal of sutures. Was seen in [facility] 03/10/2019 after cuttingleft index finger with filet knife. reports reviewed - 13 running suture placed. Laceration of finger occurred 12 days ago. . No problems since then. OBJECTIVE: Wound healed well. Sutures removed without complication. ASSESSMENT: Suture Removal PLAN: Follow up as needed. Author: GONSALO Carranza 03/22/2019 09:50 documented in this encounter Plan of Treatment Health Maintenance Due Date Last Done Comments DTaP/Tdap/Td Vaccines (1 - 1957 Tdap) ZOSTER IMMUNIZATION SERIES 1996 (1 of 2) PNEUMOCOCCAL 65+YRS (1 of 2 07/13/2011 - PCV13) MEDICARE ANNUAL WELLNESS 03/03/2017 03/03/2016, 03/03/2016 VISIT Colonoscopy 04/02/2017 04/02/2012 FALL RISK ASSESSMENT 04/18/2019 04/18/2018, 04/18/2018 DEPRESSION SCREENING 09/28/2019 09/27/2018, 09/27/2018 LIPID DISORDER SCREENING 09/28/2019 09/27/2018, 04/18/2018, 03/03/2016, Additional history exists HEPATITIS A IMMUNIZATION Aged Out No longer eligible SERIES based on patient's age to complete this topic HPV IMMUNIZATION SERIES Aged Out No longer eligible based on patient's age to complete this topic MENINGOCOCCAL VACCINE IMM Aged Out No longer eligible based on patient's age to complete this topic documented as of this encounter Goals Goal Patient Goal Associated Recent Patient-Stated? Author Type Problems Progress Depression Depression 13 No britany Jenkins (PHQ-9) (09/27/2018 MD Fran total score < 5 2:35 PM EDT) Note: This is an individualized treatment (depression) goal for Migel Torre: Displayed above is your goal for a depression screening (PHQ-9) score that would indicate good control of your depression. Keep a regular sleep schedule Lifestyle No Fran Jenkins MD Note: This is an individualized lifestyle goal for Migel Ortiz [place]: Please maintain a regular sleep schedule. This may help with some symptoms of depression. Take all prescribed medications as directed Self-management No Fran Jenkins MD Note: This is an individualized self-management goal for Migel Torre: Please take all prescribed medications as directed. 1. Do not skip doses. If you cannot afford your medications, talk with your doctor. 2. Use a pill reminder system such as a pill box if needed. Your pharmacist can help you with this. 3. Contact your Pharmacy 5 days before your medication runs out. If you cannot take your medications for any reasons, talk with your doctor. 4. Please bring all of your medication bottles and inhalers (or a list of all your medications/inhalers) with you to every visit. Potential barriers to meeting all of your care plan goals will continue to be addressed on an ongoing basis. 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
[2019-04-02 20:39] VITALS: BP 119/69
[2019-04-02] MEDS ORDERED: Acetaminophen TAB* 325 MG PO ONE (20:59)
--- NOTE | 2019-04-02 21:50 | UC ---
Hand/Wrist HPI - HPI Summary HPI Summary: 73 yo male tripped on firewood today falling backwards on left outstretched arm c/o left wrists pain radiated to forearm - History Of Current Complaint Chief Complaint: UCUpperExtremity Stated Complaint: LEFT WRIST INJURY Time Seen by Provider: 04/02/19 20:55 Hx Obtained From: Patient Onset/Duration: Sudden Onset Severity Initially: Severe Pain Intensity: 8 Pain Scale Used: 0-10 Numeric Character Of Pain: Aching, Throbbing Aggravating Factor(s): Movement Alleviating Factor(s): Rest Associated Signs And Symptoms: Positive: Swelling Related History: Dominant Hand Right - Allergies/Home Medications Allergies/Adverse Reactions: Allergies Allergy/AdvReac Type Severity Reaction Status Date / Time hydrocodone Allergy See Comment Verified 04/02/19 20:33 morphine Allergy See Comment Verified 04/02/19 20:33 Penicillins Allergy Hives Verified 04/02/19 20:33 Tree Nuts Allergy Anaphylatic Verified 04/02/19 20:33 Shock PMH/Surg Hx/FS Hx/Imm Hx Previously Healthy: Yes Endocrine History: Dyslipidemia Cardiovascular History: Hypertension Other History Of: Negative For: Anticoagulant Therapy - Surgical History Surgical History: Yes Surgery Procedure, Year, and Place: [facility]rhaphy, [facility] - Family History Known Family History: Positive: Hypertension - Social History Alcohol Use: Rare Alcohol Amount: "a beer once in a while" Substance Use Type: None Smoking Status (MU): Never Smoked Tobacco Have You Smoked in the Last Year: No - Immunization History Most Recent Influenza Vaccination: Not UTD Review of Systems All Other Systems Reviewed And Are Negative: Yes Constitutional: Positive: Negative Skin: Positive: Negative Eyes: Positive: Negative ENT: Positive: Negative Respiratory: Positive: Negative Cardiovascular: Positive: Negative Gastrointestinal: Positive: Negative Genitourinary: Positive: Negative Motor: Positive: Negative Musculoskeletal: Positive: Arthralgia - left wrist Neurological: Positive: Negative Psychological: Positive: Negative Physical Exam Triage Information Reviewed: Yes Appearance: Well-Appearing, No Pain Distress, Well-Nourished Vital Signs: Initial Vital Signs Temp 98 F 04/02/19 20:34 Pulse 62 04/02/19 20:34 Resp 16 04/02/19 20:34 BP 119/69 04/02/19 20:34 Pulse Ox 96 04/02/19 20:34 Vital Signs Reviewed: Yes Eyes: Positive: Conjunctiva Clear ENT: Negative: Hearing grossly normal, Nasal congestion, Nasal drainage, Trismus , Muffled voice, Hoarse voice Dental Exam: Normal Neck: Positive: Supple Respiratory: Positive: Lungs clear, Normal breath sounds, No respiratory distress Cardiovascular: Positive: RRR, No Murmur Musculoskeletal: Positive: ROM Limited @ - left wrist, Edema @ - dorsum of wrist , Other: Neurological: Positive: Alert Psychological Exam: Normal Skin Exam: Normal Images Hands: 1 - swollen/tender 2 - tender hook of hamate Diagnostics - Radiology No standard instances Radiology Interpretation Completed By: ED Physician Summary of Radiographic Findings: suspect avulsion fracture one of the carpals Hand/Wrist Course/Dx - Differential Dx/Diagnosis Provider Diagnosis: Fracture of left carpal bone Discharge ED - Sign-Out/Discharge Documenting (check all that apply): Patient Departure All imaging exams completed and their final reports reviewed: No - Discharge Plan Condition: Stable Disposition: HOME Patient Education Materials: Wrist Fracture in Adults (ED) Referrals: Edenilson Melgar MD [Medical Doctor] - 1 Day (recheck in 1-3 days) Additional Instructions: the official xr reading is pending I am concerned that you have a wrist fracture follow up with orthopedist rest elevation splint tylenol - Billing Disposition and Condition Condition: STABLE Disposition: Home
--- NOTE | 2019-04-03 08:04 | UC ---
- Progress Note Progress Note: Reviewed radiology report. Possible fracture of the left distal radius with possible fracture fragment dorsal to the carpal bones. Consistent with wet read , was splinted. Please call to reinforce that orthopedic follow up is necessary for evaluation and management. Course/Dx - Diagnoses Provider Diagnoses: Fracture of left carpal bone Discharge ED - Sign-Out/Discharge Documenting (check all that apply): Post-Discharge Follow Up All imaging exams completed and their final reports reviewed: Yes - Discharge Plan Condition: Stable Disposition: HOME Patient Education Materials: Wrist Fracture in Adults (ED) Referrals: Edenilson Melgar MD [Medical Doctor] - 1 Day (recheck in 1-3 days) Additional Instructions: the official xr reading is pending I am concerned that you have a wrist fracture follow up with orthopedist rest elevation splint tylenol - Billing Disposition and Condition Condition: STABLE Disposition: Home
== END 2019-04-02 22:04 | disposition home or self-care (01) ==
LOC: UCCORT 19:57
DX: S62.102A Fracture of unspecified carpal bone, left wrist, initial encounter for closed fracture (principal); Z88.5 Allergy status to narcotic agent; Z88.0 Allergy status to penicillin; Z91.018 Allergy to other foods; W18.30XA Fall on same level, unspecified, initial encounter; Y92.9 Unspecified place or not applicable
CPT/HCPCS: 99213; A9270-GY; G0463

== ENCOUNTER 2020-08-21 11:10 | Inpatient (IN) ==
[~2020-08-21 11:10] MED LIST: Buffered Lidocaine 1% SYRIN 1 ml INTRADERM ONE; DiMENhydriNATE IV 50 mg/ml 1 ml VIAL IV PUSH PRN; Lactated Ringers 1000 ml BAG 1,000 ML IV SCH; Naloxone 0.4 mg VIAL 0.4 mg/ml 1 ml VIAL IV PRN; Ondansetron 4 mg VIAL 2 MG/ML 2 ml VIAL IV PRN; ceFAZolin 2 GM PREMIX 0 GM/0 ML BAG ONE; fentaNYL 100 mcg/2 ml 50 MCG/ML VIAL IV PRN; oxyCODONE/Acetamin 5/325 mg TAB PO PRN
[2020-08-21] MEDS ORDERED: ceFAZolin 2 GM PREMIX 0 GM/0 ML BAG ONE (11:21)
[2020-08-21] MEDS ORDERED: Buffered Lidocaine 1% SYRIN 1 ml INTRADERM ONE (11:21)
[2020-08-21] MEDS ORDERED: Dexmedetomidine 200 mcg/2 ml 2 ml VIAL (200 mcg) ONE (11:23)
[2020-08-21] MEDS ORDERED: Midazolam 2 mg/2 ml VIAL 1 mg/ml 2 ml VIAL (2 mg) ONE (11:23)
[2020-08-21] MEDS ORDERED: Clindamycin 900 MG/D5W BAG 900 MG/50 ML BAG IVPB ONE (13:03)
[2020-08-21] MEDS ORDERED: Glycopyrrolate IV 0.2 MG/ML 1 ML VIAL ONE ×2 (14:29→18:58)
[2020-08-21] MEDS ORDERED: Ketamine HCL 50 mg/ml 10 ml VIAL (500 MG) ONE (14:50)
[2020-08-21] MEDS ORDERED: Magnesium Hydroxide LIQ 30 ML UDC PO PRN (15:12)
[2020-08-21] MEDS ORDERED: Lactulose 30 ml UDC PO PRN (15:12)
[2020-08-21] MEDS ORDERED: diPHENhydraMINE 25 mg TAB PO PRN (15:12)
[2020-08-21] MEDS ORDERED: Ondansetron 4 mg VIAL 2 MG/ML 2 ml VIAL IV PRN (15:12)
[2020-08-21] MEDS ORDERED: Morphine 2 MG/ML SYRINGE IV PRN (15:12)
[2020-08-21] MEDS ORDERED: diPHENhydraMINE IV 50 MG/ML 1 ml VIAL (BENADRYL) IV PRN (15:12)
[2020-08-21] MEDS ORDERED: Ondansetron ODT 4 mg TAB 4 MG TAB PO PRN (15:12)
[2020-08-21] MEDS ORDERED: Propofol 10 MG/ML 20 ML BTL ONE (15:34)
[2020-08-21] MEDS ORDERED: Ondansetron 4 mg VIAL 2 MG/ML 2 ml VIAL ONE (18:40)
[2020-08-21] MEDS ORDERED: oxyCODONE/Acetamin 5/325 mg TAB ONE (19:21)
[2020-08-21] MEDS ORDERED: fentaNYL 100 mcg/2 ml 50 MCG/ML VIAL ONE (19:21)
[2020-08-21] MEDS: Phenol 1.4% Throat Spray 177 ml BTL MT PRN ×2 (19:28→21:09)
[2020-08-21] MEDS ORDERED: DULoxetine DR 20 mg CAP PO SCH (21:00)
[2020-08-21] MEDS: Magnesium Hydroxide LIQ 30 ML UDC PO SCH (21:06)
[2020-08-21] MEDS: Lactated Ringers 1000 ml BAG 1,000 ML IV SCH (21:30)
[2020-08-21] MEDS: Clindamycin 600 MG/D5W BAG 600 MG/50 ML BAG IV SCH (22:01)
[2020-08-21] MEDS ORDERED: fentaNYL 100 mcg/2 ml 50 MCG/ML VIAL IV SLOW PU ONE (23:11)
[2020-08-22] MEDS: Lactated Ringers 1000 ml BAG 1,000 ML IV SCH (05:44)
[2020-08-22] MEDS: Clindamycin 600 MG/D5W BAG 600 MG/50 ML BAG IV SCH ×2 (05:44→13:57)
[2020-08-22 06:44] LABS: Calcium 8.1 mg/dL (8.6-10.3); EGFR Non-African American 62.8 (>60); Potassium 4.1 mmol/L (3.5-5.0)
[2020-08-22] MEDS: Magnesium Hydroxide LIQ 30 ML UDC PO SCH (08:04)
[2020-08-22] MEDS ORDERED: Vitamin THERAPEUTIC TAB PO SCH (09:00)
[2020-08-22] MEDS ORDERED: Aspirin EC 81 mg TAB.EC (enteric coated) PO SCH (09:00)
[2020-08-22 10:35] LABS: Hematocrit 34 % (42-52); Hemoglobin 11.6 g/dL (14.0-18.0); Mean Platelet Volume 9.1 fL (7.4-10.4); Platelet Count 130 10^3/uL (150-450)
[2020-08-22 11:27] VITALS: BP 103/54
== END 2020-08-22 15:15 | disposition home or self-care (01) | DRG 470 ==
LOC: AA 11:10 → SSU 19:38
PROVIDERS: ADMIT Orthopaedic Surgery Adult Reconstructive Orthopaedic Surgery; ATTEND Orthopaedic Surgery Adult Reconstructive Orthopaedic Surgery